=== PATIENT | female | born 1955 | race Caucasian/White ===

== ENCOUNTER 2024-01-23 14:37 | Outpatient (CLI) | payer MEDICARE ==
[2024-01-23 16:33] LABS: Bilirubin Neg (Negative); Blood, Urine Negative (Negative); Clarity Clear (Clear); Glucose, Urine (Dipstick) Normal (Negative); Ketone, Urine Negative (Negative); Leukocyte 25 (Negative); Nitrite Negative (Negative); Protein, Urine (Dipstick) Negative (Neg-Trace); Specific Gravity, Urine 1.015 (1.005-1.030); Urobilinogen Normal mg/dL (Less than 2)
[2024-01-23 16:44] LABS: #Basophils 0.08 10x3/uL (0.0-0.2); #Eosinphils 0.16 10x3/uL (0.0-0.5); #Monocytes 0.81 10x3/uL (0.0-1.1); #Neutrophils 4.64 10x3/uL (1.5-8.4); %Lymphocytes 28.8 % (18.0-47.0); %Monocytes 10.1 % (0.0-10.0); %Neutrophils 57.9 % (40.0-75.0); Hematocrit 40.9 % (34.9-44.5); Hemoglobin 14.1 g/dL (12.0-15.5); Mean Corpuscular HGB CONC 34.5 g/dL (32.0-36.0); Mean Corpuscular Hemoglobin 33.1 pg (27.0-33.0); Platelet Count 329 10x3/uL (150-450); RBC Distribution Width 12.4 % (11.5-14.5); Red Blood Cell (RBC) Count 4.26 10x6/uL (3.90-5.03)
[2024-01-23 16:51] LABS: Anion Gap 14 mmol/L (10-20); BUN (Urea Nitrogen) 20 mg/dL (9.8-20.1); Calc. Creatinine Clearance 0 mL/min (70-130); Calcium 9.5 mg/dL (7.8-10.44); Carbon Dioxide 23 mmol/L (23-31); Chloride 104 mmol/L (98-107); Estimated GFR 75; Glucose 93 mg/dL (80-115); Potassium 4.1 mmol/L (3.5-5.1); Sodium 137 mmol/L (136-145)
[2024-01-23 17:32] LABS: INR-International Normal Ratio 0.9; Prothrombin Time 10.3 sec (9.5-12.1)
== END 2024-01-23 14:38 | disposition home or self-care (01) ==
LOC: LABBT 14:37
PROVIDERS: ATTEND Orthopaedic Surgery
DX: Z01.818 Encounter for other preprocedural examination (principal); M17.12 Unilateral primary osteoarthritis, left knee
CPT/HCPCS: 71046; 80048; 81003; 85025; 85610; 87081; 93005; 93010

== ENCOUNTER 2025-02-27 06:53 | Day surgery (SDC) | payer MEDICARE ==
[2025-02-26 09:41] VITALS: BMI 31.7
[~2025-02-27 06:53] MED LIST: EPINEPHrine 0.3 MG in Ophthalmic Irrigation Solution 500 ML IRR SCH
[2025-02-27] MEDS ORDERED: Cyclopentolate 1% Opth Drop 2 ML BOT ONE (07:36)
[2025-02-27] MEDS ORDERED: Lidocaine 4% PF 5 ML AMP ONE (09:19)
[2025-02-27] MEDS ORDERED: Lidocaine 1% PF 5 ML VIAL ONE (09:19)
[2025-02-27] MEDS ORDERED: Maxitrol 0.1% Opth Oint 3.5 GM TUBE ONE (09:19)
[2025-02-27] MEDS ORDERED: PROPOFOL 200 MG/20 ML VIAL ONE (09:19)
[2025-02-27] MEDS ORDERED: CEFAZOLIN 1 GM VIAL ONE (09:19)
== END 2025-02-27 11:27 | disposition home or self-care (01) ==
LOC: SDC 06:53
PROVIDERS: ATTEND Ophthalmology Retina Specialist
PROC: 08T53ZZ Resection of Left Vitreous, Percutaneous Approach (ICD-10-PCS; principal; 2025-02-27)
PROC: 08NF3ZZ Release Left Retina, Percutaneous Approach (ICD-10-PCS; 2025-02-27)
DX: H43.392 Other vitreous opacities, left eye (principal); H59.022 Cataract (lens) fragments in eye following cataract surgery, left eye; Z96.652 Presence of left artificial knee joint
CPT/HCPCS: 67041; J0166; J0690; J2250; J2704; J3010; J3301; J3490